=== PATIENT | male | born 1960 | race Caucasian/White ===

== ENCOUNTER 2020-07-02 09:59 | Outpatient (RCR) | payer MEDICAID, SELFPAY ==
[2014-07-21 14:47] VITALS: BMI 25.1
== END 2020-08-25 23:59 ==
LOC: IMMUN 09:59
PROVIDERS: Referring Provider Family Medicine; Visit Provider Family Medicine
DX: Z23 Encounter for immunization (principal)
CPT/HCPCS: 0001A; 0002A; 91300